=== PATIENT | female | born 1965 | race Caucasian/White ===

== ENCOUNTER 2016-06-12 14:30 | Emergency (ER) ==
[2016-06-12 15:18] LABS: URINE MICRO REVIEW NEEDED? NO; URINE SOURCE CLEAN CATCH
[2016-06-12 15:29] LABS: BILIRUBIN URINE NEGATIVE (NEGATIVE); BLOOD URINE TRACE (NEGATIVE); COLOR YELLOW; GLUCOSE URINE NEGATIVE (NEGATIVE); LEUKOCYTES URINE TRACE (NEGATIVE); NITRITE URINE NEGATIVE (NEGATIVE); PH URINE 6.5; PROTEIN URINE NEGATIVE (NEGATIVE); SP GRAVITY URINE 1.016; TURBIDITY URINE CLEAR (CLEAR); UROBILINOGEN URINE NORMAL (NORMAL)
[2016-06-12 15:30] LABS: UR EPITHELIAL CELLS <10 /HPF (<10); URINE BACTERIA 1+ /HPF; URINE CULTURE NEEDED? YES; URINE RBC <10 /HPF (<10); URINE WBC <10 /HPF (<10)
[2016-06-12 16:04] LABS: MANUAL DIFF NEEDED? NO
[2016-06-12 16:09] LABS: UR AMPHETAMINES QUAL NONE DETECTED (NONE DETECT); UR BARBITUATES QUAL NONE DETECTED (NONE DETECT); UR BENZODIAZEPIN QUAL NONE DETECTED (NONE DETECT); UR CANNABINOIDS QUAL NONE DETECTED (NONE DETECT); UR COCAINE QUAL NONE DETECTED (NONE DETECT); UR METHADONE QUAL NONE DETECTED (NONE DETECT); UR OPIATES QUAL NONE DETECTED (NONE DETECT); UR OXYCODONE QUAL NONE DETECTED (NONE DETECT); UR PCP QUAL NONE DETECTED (NONE DETECT)
[2016-06-12 16:09] LABS: BASO% 0.5 % (0.0-0.8); EOS# 0.08 X1000 (0.0-0.7); EOS% 1.2 % (0.0-10.0); HEMATOCRIT 37.7 % (37.0-47.0); HEMOGLOBIN 12.5 g/dL (12.0-16.0); IMM GRAN# 0.02 X1000 (0.0-0.04); IMM GRAN% 0.3 % (0.0-0.5); LYMPH# 3.07 X1000 (1.2-3.4); LYMPH% 46.3 % (20.5-51.1); MCH 29.9 PG (27-31); MCHC 33.2 g/dL (33-37); MCV 90.2 FL (81-99); MONO# 0.48 X1000 (0.11-0.59); MONO% 7.2 % (1.7-9.3); MPV 9.4 FL (7.4-10.4); NEUT% 44.5 % (42.2-75.2); PLT 304 X1000 (130-400); RBC 4.18 XMIL (4.2-5.4)
--- NOTE | 2016-06-12 16:17 | PROVIDER DOCUMENTATION ---
HPI-Psychological Disorder <Olga Chou - Last Filed: 06/12/16 22:18> - General Source: patient, family <Luis Daniel Hdz - Last Filed: 06/13/16 01:32> - General Chief Complaint: Psych Stated Complaint: DEPRESSION/SI Time Seen by Provider: 06/12/16 16:13 Allergies/Adverse Reactions: Patient Allergies Allergy/AdvReac Type Severity Reaction Status Date / Time No Known Allergies Allergy Verified 06/12/16 17:26 Home Medications: Clonazepam 1 mg PO BID 06/12/16 Docusate Sodium [Dulcolax Stool Softener] 2 tab PO QHS 06/12/16 Fluoxetine HCl 40 mg PO DAILY 06/12/16 Levothyroxine [Synthroid] 0 microgm PO DAILY 06/12/16 Lurasidone [Latuda] 40 mg PO QHS 06/12/16 Multivit with Iron,Hematinic [Central-Yakelin] 1 tab PO DAILY 06/12/16 Stitzer-3 Fatty Acids [Fish Oil] 2 tab PO DAILY 06/12/16 Pantoprazole [Protonix] 40 mg PO QAM 06/12/16 Polyethylene Glycol [Polyox Wsr-301] 1 gm MC QHS 06/12/16 Prazosin [Minipress] 10 mg PO QHS 06/12/16 Psyllium Seed (with Dextrose) [Fiber Powder] 1 packet PO QHS 06/12/16 - History of Present Illness-Psych Nature of Presenting Problem: 51 year old WF presents with c/o suicidal thoughts, ideation and multiple previous attempts. pt reports she recently moved here from [place] and has been off of her psychiatric mediations for 2 weeks. pt reports she usually has her thoughts well controlled with her medications. pt reports everything she looks at she sees as a potential item to kill herself with. as I am performing the H&P, pt reports she sees the cords for taking blood pressure as something she can kill herself with. additionally she reports while she was in the bathroom, she considered taking the plastic bag from the toilet and suffocating hersels. pt reports in [place] she was in daily therapy. (Luis Daniel Hdz) Review of Systems - Adult - REVIEW OF SYSTEMS - ADULT Constitutional: reports: no symptoms reported. denies: chills, fever, fatique Eyes: reports: no symptoms reported. denies: discharge, decreased vision, blurred vision, double vision, eye pain, redness Ears, Nose, Mouth & Throat: reports: no symptoms reported. denies: ear discharge, ear pain, nose pain, loose teeth, throat pain, throat swelling Cardiovascular: reports: no symptoms reported. denies: chest pain, orthopnea, PND, syncope Respiratory: reports: no symptoms reported. denies: chronic cough, cough, shortness of breath, wheezing Gastrointestinal: reports: no symptoms reported. denies: abdominal pain, diarrhea, nausea, vomiting Genitourinary: reports: no symptoms reported. denies: dysuria, hematuria, urgency Musculoskeletal: reports: no symptoms reported. denies: bone pain, joint pain, joint swelling, neck pain Integumentary: reports: no symptoms reported. denies: hives, itching, rash, skin thickening Neurological: reports: see HPI, headache/migraines, numbness. denies: ataxia, dizziness/vertigo, loss of balance, paresthesia, seizure, slurred speech, syncope, tremors Psychiatric: reports: see HPI, anxiety, anti-depressant use, depression, emotional problems, insomnia, panic attacks, suicidal thoughts. denies: alcohol /drug dependence Endocrine: reports: no symptoms reported. denies: change in skin pigment, goiter, cold intolerance, heat intolerance Hematologic/Lymphatic: reports: no symptoms reported. denies: blood clots, lymphedema, prolonged bleeding, transfusions Allergic/Immunologic: reports: no symptoms reported. denies: allergic reactions , allergic rhinitis, frequent infections, urticaria All Other Systems: Reviewed and Negative <Luis Daniel Hdz - Last Filed: 06/13/16 01:32> Past History - Adult - PAST MEDICAL HISTORY-ADULT Review of Records: reports: Old Records Reviewed, Nursing Assessment Review, Medications Reviewed, Social history reviewed & non-contributory. Major Childhood Illnesses: reports: denies history Cardiovascular: reports: denies history Respiratory: reports: denies history Gastrointestinal: reports: denies history Obstetrical/Gynecological: reports: denies history Genitourinary: reports: denies history Musculoskeletal: reports: denies history Neurological: reports: headaches/migraines Psychiatric: reports: anxiety, depression, psychiatric problems, ptsd, suicide attempt, other (MDD, PTSD, service trauma, 100% disabled from ) Endocrine/Immune: reports: denies history Other Conditions: reports: denies history - FAMILY HISTORY Family History: reviewed, not pertinent - SOCIAL HISTORY Smoking: quit greater than 1 year, cigarettes Substance Use: none/never Alcohol Use Frequency: never <Luis Daniel Hdz - Last Filed: 06/13/16 01:32> Physical Exam-Psych Focus - Physical Exam-Psych Initial Vital Signs Reviewed: Yes Appearance: appropriate appearance, appropriate insight, neat, no memory impairment, denies illness, anxious, mild distress (anxious). negative: no apparent destress, combative, disheveled, impaired insight, impaired recent memory, impaired remote memory, lethargic, moderate distress, severe distress, slow to respond Neurological: alert, virtual reality specialist II-XII nml as tested, oriented x 3, responds to pain, agitated, anxious. negative: normal mood/affect, calm, depressed affect, disoriented x 3, flat, no response to pain, withdraws to pain Behavior/Eye Contact/Speech: cooperative, good eye contact, normal speech Thoughts/Hallucinations: normal thought pattern, no apparent hallucination. negative: tactile hallucinations, visual hallucinations HENMT: normocephalic/atraumatic, moist mucous membranes, normal ENT inspection, pharynx normal Neck: non-tender, full range of motion, supple, normal inspection. negative: limited range of motion, tender lateral, tender midline Respiratory: chest non-tender, lungs clear, normal breath sounds, no pleuratic chest pain, no respiratory distress, no accessory muscle use. negative: respiratory distress, decreased breath sounds, accessory muscle use, crackles, rales, rhonchi, stridor, wheezing Cardiovascular: normal peripheral pulses, regular rate, rhythm, no edema, no gallop, no JVD, no murmur. negative: bradycardia, tachycardia Abdominal Exam: normal bowel sounds, non tender, soft, no organomegaly, no pulsatile mass. negative: distended, guarding, rigid, rebound, tenderness Lymphatic: no adenopathy Back Exam: normal inspection, no CVA tenderness, no vertebral tenderness. negative: CVA tenderness, decreased range of motion, vertebral tenderness Extremity: normal range of motion, non-tender, normal gait, normal inspection, no pedal edema, no calf tenderness, normal capillary refill, pelvis stable Integumentary: normal color, normal turgor, warm/dry <HdzLuis Daniel YingElizabeth - Last Filed: 06/13/16 01:32> Progress - EKG 1 Time of EKG reading by physician:: 21:45 EKG Read and Signed by:: Dada Teryr EKG Interpretation (*Must complete 3 of following elements*): Normal Rate: 74 Rhythm: NSR [place]: normal <José AntonioOlga jiménez - Last Filed: 06/12/16 22:18> - PSYCHIATRIC Medically clear for psych eval and/or transfer to [facility].: Yes (17:35) - CONSULTS/PCP/HOSPITALIST Notification #1 *Consult/PCP/Hospitalist*: Screener at [facility] Time Discussed: 21:01 Consult Disposition: Admit (they will work on inpatient admission and try to elicit as much information as possible before the geodon is effective.) <Ana Hdzemmanuel YingElizabeth - Last Filed: 06/13/16 01:32> - PLAN OF CARE/RESULTS Progress/Plan/Lab Results: Laboratory Tests 06/12/16 06/12/16 06/12/16 15:09 15:10 15:10 WBC RBC Hgb Hct MCV MCH MCHC RDW Std Deviation Plt Count MPV Immature Gran % (Auto) Neut % (Auto) Lymph % (Auto) [place] % (Auto) Eos % (Auto) Baso % (Auto) Immature Gran # (Auto) Neut # (Auto) Lymph # (Auto) [place] # (Auto) Eos # (Auto) Baso # (Auto) Sodium Potassium Chloride Carbon Dioxide Anion Gap BUN Creatinine Estimated GFR/1.73 m2 BUN/Creatinine Ratio Glucose Calculated Osmolality Calcium Total Bilirubin AST ALT Alkaline Phosphatase Total Protein Albumin Globulin Albumin/Globulin Ratio Vitamin B12 TSH Free T4 Urine Source CLEAN CATCH Urine Color YELLOW Urine Turbidity CLEAR Urine pH 6.5 Ur Specific [place] 1.016 Urine Protein NEGATIVE Ur Glucose (Stick) NEGATIVE Ur Ketones (Stick) NEGATIVE Urine Blood TRACE A Urine Nitrite NEGATIVE Urine Bilirubin NEGATIVE Urobilinogen Dipstick NORMAL Urine Leukocytes TRACE A Urine WBC (Auto) <10 Urine RBC (Auto) <10 U Epithel Cells (Auto) <10 Urine Bacteria (Auto) 1+ Urine Test NEGATIVE Urine Opiates Screen NONE DETECTED Ur Oxycodone Screen NONE DETECTED Ur Methadone, Qual NONE DETECTED Ur Barbiturates Screen NONE DETECTED Ur Phencyclidine Scrn NONE DETECTED Ur Amphetamines Screen NONE DETECTED U Benzodiazepines Scrn NONE DETECTED Urine Cocaine Screen NONE DETECTED U Cannabinoids Screen NONE DETECTED Plasma/Serum Ethyl Alc 06/12/16 06/12/16 06/12/16 15:51 15:51 15:51 WBC 6.63 RBC 4.18 L Hgb 12.5 Hct 37.7 MCV 90.2 MCH 29.9 MCHC 33.2 RDW Std Deviation 14.1 Plt Count 304 MPV 9.4 Immature Gran % (Auto) 0.3 Neut % (Auto) 44.5 Lymph % (Auto) 46.3 [place] % (Auto) 7.2 Eos % (Auto) 1.2 Baso % (Auto) 0.5 Immature Gran # (Auto) 0.02 Neut # (Auto) 2.95 Lymph # (Auto) 3.07 [place] # (Auto) 0.48 Eos # (Auto) 0.08 Baso # (Auto) 0.03 Sodium 137 Potassium 4.1 Chloride 100 Carbon Dioxide 25 Anion Gap 12 BUN 14 Creatinine 0.8 Estimated GFR/1.73 m2 > 60 BUN/Creatinine Ratio 18 Glucose 103 Calculated Osmolality 275 Calcium 9.6 Total Bilirubin < 0.10 L AST 23 ALT 20 Alkaline Phosphatase 76 Total Protein 7.2 Albumin 4.3 Globulin 2.9 Albumin/Globulin Ratio 1.5 Vitamin B12 TSH Free T4 Urine Source Urine Color Urine Turbidity Urine pH Ur Specific [place] Urine Protein Ur Glucose (Stick) Ur Ketones (Stick) Urine Blood Urine Nitrite Urine Bilirubin Urobilinogen Dipstick Urine Leukocytes Urine WBC (Auto) Urine RBC (Auto) U Epithel Cells (Auto) Urine Bacteria (Auto) Urine Test Urine Opiates Screen Ur Oxycodone Screen Ur Methadone, Qual Ur Barbiturates Screen Ur Phencyclidine Scrn Ur Amphetamines Screen U Benzodiazepines Scrn Urine Cocaine Screen U Cannabinoids Screen Plasma/Serum Ethyl Alc 06/12/16 15:51 WBC RBC Hgb Hct MCV MCH MCHC RDW Std Deviation Plt Count MPV Immature Gran % (Auto) Neut % (Auto) Lymph % (Auto) [place] % (Auto) Eos % (Auto) Baso % (Auto) Immature Gran # (Auto) Neut # (Auto) Lymph # (Auto) [place] # (Auto) Eos # (Auto) Baso # (Auto) Sodium Potassium Chloride Carbon Dioxide Anion Gap BUN Creatinine Estimated GFR/1.73 m2 BUN/Creatinine Ratio Glucose Calculated Osmolality Calcium Total Bilirubin AST ALT Alkaline Phosphatase Total Protein Albumin Globulin Albumin/Globulin Ratio Vitamin B12 681 TSH 2.42 Free T4 1.16 Urine Source Urine Color Urine Turbidity Urine pH Ur Specific [place] Urine Protein Ur Glucose (Stick) Ur Ketones (Stick) Urine Blood Urine Nitrite Urine Bilirubin Urobilinogen Dipstick Urine Leukocytes Urine WBC (Auto) Urine RBC (Auto) U Epithel Cells (Auto) Urine Bacteria (Auto) Urine Test Urine Opiates Screen Ur Oxycodone Screen Ur Methadone, Qual Ur Barbiturates Screen Ur Phencyclidine Scrn Ur Amphetamines Screen U Benzodiazepines Scrn Urine Cocaine Screen U Cannabinoids Screen Plasma/Serum Ethyl Alc Orders Category Date Time Status ACETAMINOPHEN [TDM] Stat Lab 06/12/16 17:13 Ordered ALCOHOL BLOOD Stat Lab 06/12/16 15:51 Completed CBC WITH ELECTRONIC DIFF [HEME] Stat Lab 06/12/16 15:51 Completed COMPREHENSIVE METABOLIC PANEL [CHEM] Stat Lab 06/12/16 15:51 Completed FREE T4 Stat Lab 06/12/16 15:51 Completed TEST-URINE [PREG] Stat Lab 06/12/16 15:10 Completed SALICYLATES [TDM] Stat Lab 06/12/16 17:14 Ordered TSH Stat Lab 06/12/16 15:51 Completed URINALYSIS W/POSS RFLX CULT [URINALYSIS] Stat Lab 06/12/16 15:09 Completed URINE CULTURE [RM] Routine Lab 06/12/16 15:36 Received URINE DRUG SCREEN Stat Lab 06/12/16 15:10 Completed VITAMIN B12 Stat Lab 06/12/16 15:51 Completed Lorazepam [Ativan] Med 06/12/16 16:26 Discontinued 1 mg IM NOW ONE Vital Signs - 24 hr 06/12/16 14:56 Temperature 97.9 F Pulse Rate 82 Respiratory 16 Rate Blood Pressure 151/94 O2 Sat by Pulse 100 Oximetry Pt attempted to strangel herself with the ties on her gown, cut off, awaiting screening. (Luis Daniel Hdz) Departure <Olga Chou - Last Filed: 06/12/16 22:18> - Departure Time of Disposition Order: 17:30 Certified Medical Emergency: Emergent <Luis Daniel Hdz - Last Filed: 06/13/16 01:32> - Departure DIAGNOSIS: Suicidal ideation Disposition: [facility]AT[facility] Condition: Stable Referrals: None,PCP [Primary Care Provider] - Attestation - Physician/ Mid-level Attestation Patient care was provided by Mid-level provider (TELECOMMUNICATIONS CONSULTANT/PA):: Yes Mid-level provider:: Luis Daniel Hdz Mid-level documentation review:: The Mid-level provider documentation, treatment plan and medical decision making was reviewed by the physician who agrees with all treatment and medical decision making by the MLP. <Luis Daniel Hdz - Last Filed: 06/13/16 01:32> Physician Attestation
[2016-06-12] MEDS ORDERED: ATIVAN IM ONE (16:26)
[2016-06-12 16:42] LABS: AGAP 12; ALBUMIN 4.3 g/dL (3.5-5.0); ALKALINE PHOSPHATASE 76 U/L (32-104); BUN 14 mg/dL (8-22); CALCIUM 9.6 mg/dL (8.8-10.2); CHLORIDE 100 mmol/L (98-107); COSMO 275; GOT 23 U/L (10-30); GPT 20 U/L (10-36); POTASSIUM 4.1 mmol/L (3.5-5.1); SODIUM 137 mmol/L (136-145); TCO2 25 mmol/L (25-35); TOTAL BILIRUBIN < 0.10 mg/dL (0.20-1.00); TOTAL PROTEIN 7.2 g/dL (6.3-8.3)
[2016-06-12 16:49] LABS: FREE T4 1.16 ng/dL (0.93-1.70)
[2016-06-12] MEDS ORDERED: GEODON IM ONE (20:49)
[2016-06-12] MEDS ORDERED: STERILE WATER INJ. INJ ONE (20:49)
[2016-06-13 01:18] VITALS: BP 123/78
--- NOTE | 2016-06-13 05:51 | EKG Report ---
Test Performed on : 06/12/2016 9:45:44 PM Test Reason : PSYCH Blood Pressure : / mmHG Vent. Rate : 074 BPM Atrial Rate : 074 BPM P-R Int : 158 ms QRS Dur : 092 ms QT Int : 406 ms P-R-T Axes : 061 -29 075 degrees QTc Int : 450 ms Normal sinus rhythm. Normal ECG No previous ECGs available Unconfirmed Result
== END 2016-06-13 00:55 ==
LOC: EDBD → SUPCPDRO 14:30 → ED 14:30
DX: R45.851 Suicidal ideations (principal); Z91.5 Personal history of self-harm; R51 Headache; R20.0 Anesthesia of skin; F32.9 Major depressive disorder, single episode, unspecified; F41.9 Anxiety disorder, unspecified; F43.10 Post-traumatic stress disorder, unspecified; Z87.891 Personal history of nicotine dependence; Z79.899 Other long term (current) drug therapy
CPT/HCPCS: 36415; 80053; 81001; 81025; 82607; 84439; 84443; 85025; 87088; 93005; 96372; G0480; J2060; J3486